=== PATIENT | female | born 1980 | race African-American/Black ===

== ENCOUNTER 2016-08-28 21:03 | Emergency (ER) | payer BC ==
[~2016-08-28] VITALS: Ht 160 cm; Wt 66.7 kg
[2016-08-28] MEDS ORDERED: CABE0.5T2 PO (21:42)
--- NOTE | 2016-08-28 21:43 | NUR ---
Left lower extremity calf pain for 3 days. The patient denies fever or chills
--- NOTE | 2016-08-28 21:44 | NUR ---
Placed on ER bed 17; no acute distress
[2016-08-28 22:31] LABS: BASOPHILS % (AUTO) 0.4 % (0.0-2.0); EOSINOPHILS % (AUTO) 0.6 % (0.0-6.0); HEMATOCRIT 43 % (33-45); HEMOGLOBIN 14.2 g/dL (11.5-14.8); LYMPHOCYTES # (AUTO) 1.4 /CMM (0.8-4.8); LYMPHOCYTES % (AUTO) 18.6 % (20.0-44.0); MEAN CORPUSCULAR HEMOGLOBIN 30 PG (26.0-33.0); MEAN CORPUSCULAR HGB CONC 33 g/dl (31.0-36.0); MEAN CORPUSCULAR VOLUME 89 fL (82-100); MONOCYTES # (AUTO) 0.4 /CMM (0.1-1.30); MONOCYTES % (AUTO) 6.2 % (2.0-12.0); NEUTROPHILS # (AUTO) 5.4 /CMM (1.8-8.9); NEUTROPHILS % (AUTO) 74.2 % (43.0-81.0); PLATELET COUNT (AUTO) 240 /CMM (150-450); RDW COEFFICIENT OF VARIATION 13.3 (11.5-15.0); RED BLOOD CELL COUNT(AUTO) 4.76 MIL/uL (4.0-5.2); WHITE BLOOD COUNT (AUTO) 7.3 K/uL (4.3-11.0)
[2016-08-28 22:40] LABS: CALCIUM, SERUM 8.8 mg/dL (8.5-10.1); CREATININE 0.9 mg/dL (0.6-1.3); POTASSIUM 3.2 mmol/L (3.5-5.1)
[2016-08-28 22:59] LABS: D-DIMER 0.19 mg/L(FEU (0.17-0.50); INR 0.96 (0.87-1.13); PROTHROMBIN TIME 10.2 SECS (9.5-12.7)
--- NOTE | 2016-08-28 23:15 | NUR ---
PT OK TO DISCHARGE PER DR LONG. Patient discharged to home in stable condition. Written and verbal after care instructions given. Patient verbalizes understanding of instruction.Patient is awake and alert to self, day, and place. PT ambulatory with a steady gait
[2016-08-28 23:45] VITALS: BP 128/80
== END 2016-08-28 23:50 | disposition home or self-care (01) ==
LOC: ER 21:16
DX: R25.2 Cramp and spasm (principal); M79.605 Pain in left leg; Z86.018 Personal history of other benign neoplasm
CPT/HCPCS: 36415; 80048-TC; 85025-TC; 85378-TC; 85730-TC; A4606; Z7610